=== PATIENT | female | born 1960 | race Caucasian/White ===

== ENCOUNTER 2023-04-07 06:31 | Day surgery (SDC) | payer OTHER, SELFPAY ==
[2023-03-30 13:20] VITALS: BMI 36.7
[2023-04-07] VITALS (7 sets, daily range): BP systolic 126–168; BP diastolic 64–89; PULSE 60–84; RESP 13–16; TEMP 36.2–36.6; O2SAT 90–98; BMI 36.7
--- NOTE | 2023-04-07 | PATH_ITS ---
[facility] Accession Number: [id number] No. of containers..01 Tissue . 01 Material submitted: . endometrium - ENDOMETRIAL CURRETTINGS . 01 Diagnosis: Endometrium, Currettings: Benign endometrial polyp with cystic atrophy. No atypical hyperplasia or malignancy. [facility] 04/11/2023 1418 Local . 01 Electronically signed: . Suzy Zhang MD, Pathologist NPI- [id number] . 01 Gross description: . ENDOMETRIAL CURRETTINGS: Received in formalin are minute fragments of mucoid and hemorrhagic material measuring 4.0 x 3.0 x 0.5 cm in aggregate. Submitted in toto in 5 cassettes. /[facility] 04/08/2023 2206 Local . 01 Pathologist provided ICD-10: N84.0 . 01 CPT . 410587 Specimen Comment: A courtesy copy of this report has been sent to [phone] Performed at: 01 [facility] [address] [place] [address], [place], [place] [id number] MD Fili Blackwell MD Phone: [phone]
[2023-04-07] MEDS: LACTATED RINGERS 1,000 ML 21 ML IV (07:06)
--- NOTE | 2023-04-07 07:30 | PM.PREOP ---
Pre-operative Note Interval Note History & Physical reviewed/Exam performed by Physician: Yes Changes to H&P: No
--- NOTE | 2023-04-07 08:11 | SUR.OPER ---
Lithotomy on padded OR bed, head on pillow, arms secured on padded arm boards at <90 degrees abduction. Legs secured in padded yellow fins stirrups.
--- NOTE | 2023-04-07 08:51 | PM.OP.1 ---
Operative Date/Time/Diagnoses Date of procedure: 04/07/23 Time of procedure: 08:52 Pre-op diagnosis: Postmenopausal bleeding with thickened endometrium on ultrasound Post-op diagnosis: same Procedure & Clinicians Procedure: Hysteroscopy with MyoSure resection of polyp Same procedure as scheduled: Yes (MyoSure was used due to the large size of the endometrial polyp found) Indications: Postmenopausal bleeding with thickened endometrium on ultrasound Surgeon: Agnes Estrella Click Yes if Unassisted: Yes Anesthesia Type: General Operative Notes Findings: Enlarged uterus with large and some small endometrial polyps in the endometrial lining Closure Type: not applicable Specimen(s): other (Endometrial curettings) Estimated Blood Loss (mL): 100 Blood products transfused: none Procedure in detail: The patient was brought to the operating room where she underwent general anesthesia. She was placed in low stirrups She was prepped and draped in usual sterile fashion with pulsatile stockings in place and functional, warming in place, no antibiotics were indicated. Her bladder was drained with in and out catheter. A single-tooth tenaculum was placed on the anterior lip of the cervix and the uterus dilated to #8 Hegar dilator. The hysteroscope was placed into the uterus. Due to the large size of a endometrial polyp decision was made to use the MyoSure for resection. The MyoSure was placed into the uterus and the small device used to resect the polyp down to the base. Several other smaller polyps were also resected. An endometrial curettage was performed. The tissue was sent to pathology. The patient went to recovery room in good condition counts of instruments and sponges were correct. The sorbitol solution I=O approximately 2000 mL. Complications: none Post-operative Condition: stable Disposition: same day surgery Plan for aftercare: Home when awake and stable. Treatment and follow-up based on biopsy results.
== END 2023-04-07 09:20 | disposition home or self-care (01) ==
PROVIDERS: PCP Registered Nurse; Referring Provider Specialist; Visit Provider Specialist
PROC: 0UDB8ZZ Extraction of Endometrium, Via Natural or Artificial Opening Endoscopic (ICD-10-PCS; CPT 58558; principal; 2023-04-07 07:45)
DX: N95.0 Postmenopausal bleeding (principal); N84.0 Polyp of corpus uteri
CPT/HCPCS: 58558; 82962; J2250; J3010

== ENCOUNTER → 2023-09-19 15:03 | Outpatient (CLI) | payer OTHER, SELFPAY ==
--- NOTE | 2023-09-19 15:04 | DI.US.S_ITS ---
PROCEDURE: US PELVIC COMPLETE INDICATIONS: PMB TECHNIQUE: Real-time scanning was performed of the pelvic organs, with image documentation. Additional endovaginal scanning was necessary due to incomplete visualization of the adnexal and endometrial structures by transabdominal scanning. COMPARISON: US, US PELVIC COMPLETE WITH TRANSVAGINAL, 02/01/2017, 10:43. FINDINGS: Uterus: Uterus is anteverted and enlarged in size at 12.5 x 9.6 x 9.5 cm. The myometrium is heterogeneous. The endometrium is not clearly identified. There are multiple foci of heterogeneous echogenicity within the uterus. The largest measures 5.6 x 5.9 x 5.4 cm in the right anterior intramural region. Ovaries: Not visualized secondary to fibroids. Other: No pathologic free abdominal or pelvic fluid. IMPRESSION: Poor visualization of the endometrial complex as well as ovary secondary to prominent uterine fibroids as above. We strive to produce accurate, complete, and clear reports of imaging services. To assist us in improving patient care, this report was composed using standard report templates and voice recognition software. Therefore, it may contain abnormal punctuation, insertions and/or omissions. Occasional wrong-word or sound-alike substitutions may occur. Though we review the report and make efforts to correct it, we do recommend that the report be read carefully in proper context to recognize any text inaccuracies. Dictated by: Lisa Dominguez M.D. on 09/19/2023 at 17:43 Approved by: Lisa Dominguez M.D. on 09/19/2023 at 17:44
== END ==
PROVIDERS: PCP Registered Nurse; Referring Provider Obstetrics & Gynecology; Visit Provider Obstetrics & Gynecology
DX: D25.1 Intramural leiomyoma of uterus (principal); N95.0 Postmenopausal bleeding
CPT/HCPCS: 76856